=== PATIENT | female | born 1975 | race Caucasian/White ===

== ENCOUNTER 2017-11-02 10:23 | Emergency (ER) | payer BC, SELFPAY ==
[2017-11-02 10:24] VITALS: BP 158/103; PULSE 97; RESP 16; TEMP 36.7; O2SAT 97; BMI 41.5
--- NOTE | 2017-11-02 10:39 | CT_ITS ---
STUDY: CT ABDOMEN AND PELVIS WITHOUT CONTRAST REASON FOR EXAM: Female, 42 years old. LT FLANK PAIN, HX-KS, SURG-KORIN, HTN,DB. RADIATION DOSAGE (If Supplied By Facility): CTDIvol = ( 24.14 ) mGy, DLP = ( 1133.65 ) mGycm TECHNIQUE: Transaxial images were obtained from the dome of the diaphragm to the symphysis pubis without oral contrast, and without intravenous contrast. Sagittal and coronal images were reconstructed. Individualized dose optimization techniques were used for this CT. COMPARISON: October 21 2016 FINDINGS: The lung bases are not visualized. The visualized portions of the heart are within normal limits. There is decreased attenuation of the liver consistent with steatosis. There is non-visualization of the gallbladder, which may be secondary to either contraction or a prior cholecystectomy. Normal spleen. Normal pancreas. Normal bilateral adrenal glands. Normal right kidney. There is mild hydroureteronephrosis on the left. There is 2 mm calcification within the proximal ureter (axial image #92 series 2) Normal visualized stomach. Normal small intestine. Normal colon. The appendix is visualized and appears normal. Normal abdominal aorta. Normal inferior vena cava. Normal retroperitoneum. Normal urinary bladder. There is a 3.8 cm hypodensity of the left adnexal region. Normal abdominal wall. There are diffuse degenerative changes of the visualized lumbar spine. CT/Abdomen/Pelvis without Cont IMPRESSION: 2 mm proximal ureteral calculus with mild hydroureteronephrosis on the left. 3.8 cm left adnexal cyst. Further evaluation with sonography can be obtained. Liver steatosis. Electronically Signed: Marialuisa Carrera MD at 12:19 EDT Tel , Service support ,
--- NOTE | 2017-11-02 10:42 | ED.VISSUMM ---
- ER Visit Summary Date of Service: 11/02/17 Chief Complaint: Flank pain History of Present Illness: The patient is a 42 F with history of kidney stone presents to the emergency department with left-sided flank pain into her left lower quadrants. The patient had intermittent symptoms for the past 10 days, but over the past 2 days they have worsened. She describes cramping pain in her left upper back that has since moved to her left lower quadrant. She is unsure if she has had any hematuria, but has noticed some pink tinged urine. She has never required lithotripsy or stenting for stone. Only past surgical history significant for cholecystectomy. She has had no fevers or chills. She has been nauseated without vomiting. She denies any diarrhea. Physical Examination: Vital signs reviewed General: Well-nourished, well-developed Head: Normocephalic, atraumatic Eyes: Pupils equal and reactive, extraocular muscles intact Neck, supple, no lymphadenopathy Heart: Regular rate and rhythm Respiratory: No distress, clear bilaterally Abdomen: Soft, nontender, nondistended, no peritoneal signs Back: Nontender Extremities: Nontender, no edema, no cords Skin: Normal color no rash Neuro: Alert and oriented, no focal or lateralizing deficits Test Results: [] Emergency Department Course and Treatment: The patient has signs and symptoms of kidney stone. I did obtain a urine and there is some evidence of infection. Culture was added. Patient was treated with Phenergan and morphine. She had complete resolution of pain. CT the abdomen shows a 2 mm left-sided stone with mild hydro-. Labs are otherwise unremarkable. The patient is resting comfortably. At this time, I do feel that she is safe for discharge. I will start her on Cipro given the evidence of infection. She has no fever. She wants to try outpatient therapy and I feel this is reasonable. I did certified alcohol and drug counselor her that if she begins to have a fever, worsening pain, or vomiting she needs to return immediately. She is comfortable with this plan of care and will be discharged. Treatment Plan: [] Disposition: Discharge Impression: 1. Left-sided urolithiasis 2. UTI This note was generated with [employer] software. It may contain incorrect words, spelling, and punctuation that were not noted in review of the chart prior to signing ED Disposition - Plan for ED Patient: Chief Complaint: Flank Pain Instructions: ED Stone Renal W Colic Prescriptions: Hydrocodone Bitart/Apap 5-325 [Purcell 5/325] 1 tab PO Q4H PRN PRN 3 Days #12 tab PRN Reason: Pain Ondansetron [Zofran Odt] 4 mg PO Q8H PRN PRN #10 tab PRN Reason: Nausea Ciprofloxacin [Cipro] 500 mg PO BID #14 tab Referrals: Steven Puentes MD [Primary Care Provider] - Cody Molina MD [STAFF PHYSICIAN] -
[2017-11-02 10:56] LABS: Mucous, Urine 0 SEEN /hpf (<or=2+)
[2017-11-02] MEDS: Morphine 4 MG/ML Syringe IV (10:56)
[2017-11-02] MEDS: proMETHazine 25 MG/ML Syringe 6.25 MG IV (10:56)
[2017-11-02] MEDS: 0.9% Normal Saline 1,000 ML 250 ML IV (10:57)
[2017-11-02] MEDS: Ketorolac 30 MG/ML Syringe IV (10:57)
[2017-11-02 11:03] LABS: Color, Urine Yellow (Yellow); Glucose, Dipstick 50 mg/dl (Normal); Ketone-Dipstick Negative (Negative); Leukocyte Esterase-Dipstick 500 /ul (Negative); Nitrite-Dipstick Negative (Negative); Occult Blood-Urine 250 /ul (Negative); Protein-Dipstick 100 mg/dl (Negative); Specific Gravity, Urine 1.025 (1.002-1.030); Urine Bilirubin Dipstick Negative (Negative); Urine Clarity Sl. Cloudy (Clear); Urine Urobilinogen Normal (Normal)
[2017-11-02 11:03] LABS: Absolute Lymphocyte Count 2.28 X10^3/ul (0.83-4.51); Absolute Neutrophil Count 7.4 X10^3/uL (2.0-7.7); Basophil# 0.02 X10^3/uL; Basophil% 0.2 % (0-1); Eosinophil# 0.18 X10^3/uL; Eosinophils% 1.7 % (0-5); Hemoglobin 13.2 g/dl (12.0-15.0); Lymphocyte # 2.28 X10^3/ul (4.0); Mean Corp Hgb Conc 32.2 g/gl (32-36); Mean Corpuscular Hgb 27.9 pg (27.0-32.0); Mean Corpuscular Volume 86.7 fL (81-99); Monocyte# 0.96 X10^3/uL; Monocyte% 8.8 % (0-10); Neutrophil # 7.38 X10^3/uL (2.7-7.7); Neutrophil % 67.9 % (47-70); Platelet Count 392 K/mm3 (150-450); RBC Distribution Width CV 15.1 % (11.6-14.6); RBC Distribution Width SD 47.9 fl (35.1-43.9); Red Blood Count 4.73 M/mm3 (4.2-5.4); White Blood Count 10.9 K/mm3 (4.4-11.0)
[2017-11-02 11:04] LABS: POSITIVE COUNT NO; POSITIVE DIFFERENTIAL NO; POSITIVE MORPHOLOGY NO
[2017-11-02 11:12] LABS: Anion Gap 7 (5-15); BUN 12 mg/dL (7-18); BUN/Creat Ratio 19.5 RATIO (10-20); Chloride 103 mmol/L (98-107); Creatinine, Serum 0.62 mg/dL (0.55-1.02); EST Glomerular Filtration Rate 114 mL/min (>60); Est Glom Filt Rate - Afr Amer 138 mL/min (>60); Estimated Creatinine Clearance 91.02 ml/min; Glucose 125 mg/dL (74-106); Potassium 3.5 mmol/L (3.5-5.1); Sodium Level 138 mmol/L (136-145)
[2017-11-02 11:14] LABS: Red Blood Cells-Urine 0-5 SEEN /hpf (0-5); White Blood Cells 25-50 SEEN /hpf (0-5)
[2017-11-02 11:15] LABS: Bacteria 2+ /hpf (None Seen); Squamous Epithelial Cells - UA 5-10 SEEN /hpf (5-10)
[2017-11-02 11:20] LABS: Pregnancy, Serum, hCG Quali. NEGATIVE Negative (0-9 Nonpreg)
[2017-11-02] MEDS: Ciprofloxacin 500 MG Tablet PO (12:42)
[2017-11-02 12:45] VITALS: PULSE 90; RESP 16; O2SAT 98
== END 2017-11-02 12:45 | disposition home or self-care (01) ==
PROVIDERS: Emergency Provider Emergency Medicine; Family Provider Family Medicine; PCP Family Medicine
DX: N13.2 Hydronephrosis with renal and ureteral calculous obstruction (principal); N39.0 Urinary tract infection, site not specified; Z87.442 Personal history of urinary calculi; Z90.49 Acquired absence of other specified parts of digestive tract; E66.9 Obesity, unspecified; I10 Essential (primary) hypertension; E78.00 Pure hypercholesterolemia, unspecified; E11.9 Type 2 diabetes mellitus without complications; Z79.84 Long term (current) use of oral hypoglycemic drugs; Z79.899 Other long term (current) drug therapy
CPT/HCPCS: 74176; 80048; 81001; 84703; 85025; 87086; 87088; 96361; 96374; 96375; 99284; J7030

== ENCOUNTER 2018-09-17 05:46 | Day surgery (SDC) | payer BC, SELFPAY ==
[2018-09-17 06:09] VITALS: BP 143/77; PULSE 78; RESP 14; TEMP 37.1; O2SAT 96; BMI 41.4
[2018-09-17 06:20] LABS: Internal QC Validated? YES +Cl - CLEAR BKGD; Pregnancy, Urine Negative Negative
[2018-09-17 06:26] LABS: Bedside Glucose 111 mg/dL (70-110)
[2018-09-17 06:27] LABS: Hematocrit 40.4 % (37-47); Hemoglobin 12.6 g/dl (12.0-15.0); Mean Corp Hgb Conc 31.2 g/gl (32-36); Mean Corpuscular Hgb 27.3 pg (27.0-32.0); Mean Corpuscular Volume 87.4 fL (81-99); Mean Platelet Vol. 9.3 fl (6.2-12.0); Platelet Count 334 K/mm3 (150-450); RBC Distribution Width CV 15.4 % (11.6-14.6); RBC Distribution Width SD 48.5 fl (35.1-43.9); Red Blood Count 4.62 M/mm3 (4.2-5.4); White Blood Count 11.2 K/mm3 (4.4-11.0)
[2018-09-17 06:29] LABS: Scan Indicated on CBC? Y/N NO
[2018-09-17 06:42] LABS: EST Glomerular Filtration Rate 145 mL/min (>60); Est Glom Filt Rate - Afr Amer 176 mL/min (>60); Estimated Creatinine Clearance 106.36 ml/min; Glucose 111 mg/dL (74-106)
--- NOTE | 2018-09-17 07:30 | EMB_PTH ---
PATIENT: JOSSE TANNER LOC: [facility] [place] U#:[id number] AGE/SX: 43/F ROOM: RE09/17/[address]: Dr. Kassidy Tran DO : 1975 BED: DIS: 09/17/2018 SPEC #: [id number] RECD: 09/17/18 14:10 STATUS: URSZULA [place] #: [id number] LEONEL: 09/17/18 07:[address]: Kassidy Tran DEPT: SURGICAL PATHOLOGY RECD BY: Adin Tolliver ENTERED: 09/17/18 14:43 SP TYPE: ENDOM BX/C SABRINA DR: Dr. Steven Puentes MD Tissues: A - Endometrium, NOS B - Endometrium, NOS Procedures: Surgery Specimen Level IV HEADER OPERATION: Hysteroscopy, D & C Symphion, polypectomy PRE-OP DIAGNOSIS: Abnormal uterine bleeding, endometrial polyp TISSUE SUBMITTED: A - Endometrial curettings, B - Endometrial polyps MICROSCOPIC DIAGNOSIS A. Endometrium, curettings: Disordered proliferative endometrium to simple hyperplasia without atypia. Mild chronic endometritis. B. Endometrial polyps, biopsy: Polypoid fragments of endometrium with simple and focal complex hyperplasia without atypia. Mild chronic endometritis. AM:johnnie 09/18/18 MICROSCOPIC DESCRIPTION Slides are reviewed. GROSS DESCRIPTION A - Received in fixative is one container labeled with the patient's name and designated endometrial curettings. The specimen consists of multiple irregular fragments of red-pérez soft tissue that in aggregate measure 6 x 3 x 0.3 cm. The specimen is totally submitted in two cassettes. B - Received in fixative is one container labeled with the patient's name and designated endometrial polyps. The specimen consists of multiple irregular fragments of light pink-pérez soft tissue that in aggregate measure 3 x 1.5 x 0.1 cm. The specimen is totally submitted in one cassette. / AM:johnnie 09/17/18 TC:5 CPT: 76195 x2
--- NOTE | 2018-09-17 08:32 | DCINST_ITS ---
Discharge Diet: No Restrictions Discharge Activity: Return to Normal Activity, May Shower May resume sexual activity in: 1-2 weeks Weight Bearing Status: Full weight bearing Lifting Restrictions: None Call your doctor if you observe: Fever of 101 or Higher, Inability to urinate, Inability to have a bowel movement, Using more than one pad per hour, Shortness of breath, Dizziness, Chest pain, Increased palpitations (irregular heartbeat), Calf discomfort, Uncontrolled pain Cleanse incision/area with: Soap & Water Allergies/Adverse Reactions: Allergies Penicillins Allergy (Verified 09/17/18 06:10) Hives spironolactone [From Aldactone] Allergy (Verified 09/17/18 06:10) Hives Medications to take at Discharge Amlodipine [Norvasc] 5 mg PO DAILY 10/28/15 Glimepiride [Amaryl] 1 mg PO DAILY 10/28/15 Hydrochlorothiazide 12.5 mg PO DAILY 10/28/15 Levothyroxine [Synthroid] 50 mcg PO DAILY 10/28/15 Liraglutide [Victoza 2-Gonzalo] 1.8 mg SQ DAILY 10/28/15 Lisinopril [Zestril] 20 mg PO BID 10/28/15 Lovastatin [Mevacor] 20 mg PO DAILY 10/28/15 Metformin HCl [Glucophage] 1,000 mg PO BIDCM 10/28/15 Sertraline HCl [Zoloft] 100 mg PO DAILY 10/28/15 Primary Care Physician: Steven Puentes MD [Primary Care Provider] - Test Results: Test results from this visit will be discussed in further detail at your follow- up appointment, if applicable. Please Follow Up With: Kassidy Tran DO When: 1-2 weeks
--- NOTE | 2018-09-17 08:34 | PCM.OPRPT ---
Problem List (1) Endometrial polyp Status: Acute (2) Abnormal uterine bleeding (AUB) Status: Acute Report of Operation Date of Procedure: 09/17/18 Pre-Operative Diagnosis: AUB, endometrial polyp on biopsy Post-Operative Diagnosis: As above Surgery/Procedure Performed:: Hysteroscopy, polypectomy with Symphion, D&C Description of Surgical Findings:: Multiple endometrial polyps noted within cavity. Otherwise endometrium thin appearing. Bilateral tubal ostia unable to be visualized due to the amount of poylps within the cavity. No descent of uterus and cervix Type of Anesthesia:: MAC Specimen's removed: Endometrial polyps and endometrial curettings Estimated Blood Loss (mL): < 50 cc Description of Procedure: Patient was prepped and draped in the usual sterile fashion in dorsal lithotomy position using yellow fin stirrups. MAC anesthesia was found to be adequate. A long weighted speculum was placed and the cervix was visualized. There was no descent of the cervix. A single tooth tenaculum was placed on the anterior lip and the cervix was serially dilated to accommodate the Symphion hysteroscope. The Symphion hysteroscope was then introduced into the cavity, and the cavity was distended with fluid. The cavity was noted to be filled with multiple polyps. The Symphion device was then used to remove the polyps. Pictures were taken. The hysteroscope was then removed. A sharp D&C was performed for scant tissue. The polyps and endometrial tissue were sent to pathology for reviewed. All instruments were removed from the vagina. Bleeding was hemostatic. The patient tolerated the procedure well and was taken to the recovery room in good condition. Instrument counts were correct. - Complications None - Admit VTE Documentation VTE Present on Admission: No VTE Mechan Device Prophylaxis: SCD's VTE Pharm Prophylaxis ordered?: No
[2018-09-17 08:35] VITALS: BP 137/87; BP 143/77; PULSE 72; RESP 16; TEMP 36.8; O2SAT 100
[2018-09-17 08:40] VITALS: BP 140/75; BP 143/77; PULSE 70; RESP 16; O2SAT 98
[2018-09-17 08:45] VITALS: BP 137/88; BP 143/77; PULSE 68; RESP 16; O2SAT 100
[2018-09-17 08:50] VITALS: BP 140/80; BP 143/77; PULSE 72; RESP 16; TEMP 36.3; O2SAT 100
[2018-09-17 09:26] VITALS: BP 143/77
== END 2018-09-17 10:12 | disposition home or self-care (01) ==
LOC: SDC 05:47 → AC 05:49
PROVIDERS: Family Provider Family Medicine; PCP Family Medicine; Referring Provider Obstetrics & Gynecology; Visit Provider Obstetrics & Gynecology
PROC: 0UB98ZZ Excision of Uterus, Via Natural or Artificial Opening Endoscopic (ICD-10-PCS; CPT 58558; principal; 2018-09-17 07:15)
DX: N85.01 Benign endometrial hyperplasia (principal); N71.1 Chronic inflammatory disease of uterus; N93.9 Abnormal uterine and vaginal bleeding, unspecified; E78.00 Pure hypercholesterolemia, unspecified; E11.9 Type 2 diabetes mellitus without complications; F32.9 Major depressive disorder, single episode, unspecified; F41.9 Anxiety disorder, unspecified; I10 Essential (primary) hypertension; E03.9 Hypothyroidism, unspecified; G47.33 Obstructive sleep apnea (adult) (pediatric); Z79.84 Long term (current) use of oral hypoglycemic drugs; Z79.899 Other long term (current) drug therapy
CPT/HCPCS: 00952; 58558; 36415; 81025; 82565; 82947; 82962; 85027; 86850; 86870; 86900; 86902; 86905; 88305; J7120; J2405

== ENCOUNTER 2020-12-28 20:53 | Emergency (ER) | payer SELFPAY ==
[2020-12-28 20:53] VITALS: BP 116/73; PULSE 90; RESP 16; TEMP 36.7; O2SAT 97; BMI 38.3
--- NOTE | 2020-12-28 21:11 | EX.ED.DYSGE1 ---
HPI History of Present Illness Chief Complaint: Complaint Informant: patient Onset/Context/Timing Onset: Days (3) Context: Gradual Onset Timing: Continuous Quality: Aching Location: Low back and lower abdomen Worsened by: Nothing Relieved by: Nothing Narrative Narrative: Patient presents with back pain that has been getting worse over the past 3 days. Patient states she was seen in urgent care 3 days ago and diagnosed with a urinary tract infection. Patient had a urine culture performed at that time which grew out Klebsiella. Patient has been on Cipro for the past 3 days with minimal improvement. Patient describes her pain as aching. Patient states the pain is over the lower lumbar area and radiates around to her abdomen. Patient admits to subjective chills. Patient admits to nausea but denies any vomiting. Patient denies any fevers. [facility] Medical History (Updated 12/28/20 @ 22:[address] Pierre Fuller, ) Depression Diabetes Hypertension Hypothyroidism Home Medications Liraglutide [Victoza 2-Gonzalo] 1.8 mg SQ DAILY 10/28/15 [History Last Taken Unknown] amlodipine 10 mg PO DAILY 10/28/15 [History Last Taken 09/17/18 05:00 5 MG] glimepiride 4 mg PO DAILY 10/28/15 [History Last Taken Unknown] hydrochlorothiazide 12.5 mg PO DAILY 10/28/15 [History Last Taken Unknown] levothyroxine 75 mcg PO DAILY 10/28/15 [History Last Taken 09/17/18 05:00 50 MCG] lisinopril 20 mg PO BID 10/28/15 [History Last Taken 01/02/16 07:30] lovastatin 20 mg PO DAILY 10/28/15 [History Last Taken 09/17/18 05:00 20 MG] metformin 1,000 mg PO BIDCM 10/28/15 [History Last Taken Unknown] sertraline 100 mg PO DAILY 10/28/15 [History Last Taken Unknown] ciprofloxacin HCl 500 mg PO BID #14 tablet 12/28/20 [Rx Last Taken Unknown] medroxyprogesterone [Provera] 5 mg PO DAILY 12/28/20 [History Last Taken Unknown] Allergy/AdvReac Type Severity Reaction Status Date / Time Penicillins Allergy Hives Verified 09/17/18 06:10 spironolactone Allergy Hives Verified 09/17/18 06:10 [From Aldactone] Surgical History (Updated 12/28/20 @ 21:[address] Pierre Fuller DO) History of cholecystectomy Status post trigger finger release Social History Smoking Status: Never smoker ROS ROS ED Constitutional Constitutional ED: Reports chills and subjective; Denies fever(s) Eyes Eyes: Denies blurry vision or change in vision ENT ENT ED: Denies rhinorrhea or sore throat Cardiovascular Cardiovascular: Denies chest pain or palpitations Respiratory/Chest Respiratory/Chest: Reports cough; Denies dyspnea Gastrointestinal Gastrointestinal: Reports nausea; Denies vomiting Genitourinary Genitourinary ED: Denies dysuria or hematuria Musculoskeletal Musculoskeletal: Reports back pain; Denies neck pain Integumentary Denies abscess or rash Neurologic Neurologic: Denies headache(s) or weakness Allergic/Immunologic Allergic/Immunologic ED: Denies mouth swelling or urticaria EXAM Physical Exam Const Vital Signs: 12/28/20 20:53 Temperature 98.1 F Temperature Source Temporal Pulse Rate 90 Respiratory Rate 16 Blood Pressure 116/73 Blood Pressure Mean 87 Pulse Ox 97 Oxygen Delivery Method Room Air Positive well nourished, well developed and obese General Appearance ED: well developed Nutritional Appearance: obese HEENT Reports moist mucous membranes Neck supple and no JVD Resp normal respiratory effort and clear to auscultation bilaterally Cardio regular rate and regular rhythm GI normal to inspection, nondistended, normoactive bowel sounds Palpation: soft and tender LLQ, RLQ and suprapubic; Negative for guarding or rebound tenderness present Back/Spine no CVA tenderness General Back: other There is some mild lower lumbar paraspinal muscle tenderness. Neuro oriented x3, CN's II-XII intact bilaterally and no sensory deficits noted Sensorium / Orientation: alert Motor Exam: strength 5/5 throughout Psych mental status grossly normal MDM MDM MDM Narrative Medical decision making narrative: Urinalysis shows leukocyte esterase of 100 with 10-25 white blood cells. There is rare bacteria. CBC is within normal limits. Comprehensive metabolic profile shows a mild hypokalemia 3.1. Patient was given a dose of oral potassium here. Urine culture was sent. CT scan of the abdomen and pelvis was obtained. There is mild prominence of the left renal collecting system and pelvis without ureteral calculus. Findings may represent recent passage of a urinary calculus or a sending UTI. This was interpreted by the radiologist and reviewed by myself. Patient was given a dose of Rocephin here. Cipro should cover Klebsiella pneumonia. Patient was given a prescription for a longer course of Cipro. Patient was instructed to follow-up with her primary care physician in 3 to 5 days for sensitivity results from her urine culture. Patient understood and was agreeable with the plan. All questions were answered. Lab Data Attestation: I reviewed the patient's lab results. Labs: Laboratory Results - last 24 hr 12/28/20 12/28/20 12/28/20 21:01 21:20 21:20 WBC 10.9 RBC 5.01 Hgb 13.9 Hct 42.7 MCV 85.2 MCH 27.7 MCHC 32.6 RDW Std Deviation 43.1 RDW Coeff of Daniella 13.8 Plt Count 362 MPV 9.2 Immature Gran % (Auto) 0.600 Neut % (Auto) 71.7 H Lymph % (Auto) 16.0 L Wise % (Auto) 10.1 H Eos % (Auto) 1.1 Baso % (Auto) 0.5 Absolute Neuts (auto) 7.8 H Absolute Lymphs (auto) 1.75 Nucleated RBC % 0 Sodium 135 L Potassium 3.1 L Chloride 99 Carbon Dioxide 28.0 Anion Gap 8 BUN 14 Creatinine 0.70 Estim Creat Clear Calc 78.20 Est GFR (MDRD) Af Amer 117 Est GFR (MDRD) Non-Af 97 BUN/Creatinine Ratio 20.0 Glucose 78 Calcium 9.1 Total Bilirubin 0.30 AST 37 ALT 55 Alkaline Phosphatase 105 Total Protein 8.0 Albumin 3.4 Globulin 4.6 H Albumin/Globulin Ratio 0.7 L Urine Color Yellow Urine Clarity Sl. Cloudy Urine pH 5.0 Ur Specific [place] 1.025 Urine Protein 30 H Urine Glucose (UA) Normal Urine Ketones 5 H Urine Occult Blood 10 H Urine Nitrite Negative Urine Bilirubin Negative Urine Urobilinogen Normal Ur Leukocyte Esterase 100 H Urine RBC 0-5 SEEN Urine WBC 10-25 SEEN Ur Squamous Epith Cells 0-5 SEEN Urine Bacteria RARE Urine Mucus 0 SEEN Radiography Diagnostic Testing: Radiology Impression Abdomen/Pelvis CT 12/28/20 21:49 IMPRESSION: Mild prominence of the left renal collecting system and pelvis without obstructing ureteral calculus. Findings may represent recent passage of urinary calculus no longer present or ascending UTI. Individualized dose optimization techniques were used for this CT. at 2220 Reported and signed by: Bonifacio Billy MD Electronically Signed: Bonifacio Billy MD at 22:19 EDT Tel , Service support , Discharge Plan Triage Chief Complaint: Complaint ED Provider: Pierre Fuller Dx/Rx/DC Orders Clinical Impression: Urinary tract infection Instructions: ED Bladder Infection, Female (Adult) Prescriptions: New ciprofloxacin HCl [ciprofloxacin HCl] 500 MG tablet 500 mg PO BID Qty: 14 RF: 0 Discontinued ciprofloxacin HCl 500 mg Tablet 500 mg PO BID RF: 0 No Action lisinopril 20 MG tablet 20 mg PO BID RF: 0 amlodipine 5 MG tablet 10 mg PO DAILY RF: 0 glimepiride 1 MG tablet 4 mg PO DAILY RF: 0 metformin 1,000 MG tablet 1,000 mg PO BIDCM RF: 0 hydrochlorothiazide 12.5 MG capsule 12.5 mg PO DAILY RF: 0 sertraline 100 MG tablet 100 mg PO DAILY RF: 0 levothyroxine 50 MCG tablet 75 mcg PO DAILY RF: 0 lovastatin 20 MG tablet 20 mg PO DAILY RF: 0 Liraglutide [Victoza 2-Gonzalo] 0.6 MG/0.1 ML Ml 1.8 mg SQ DAILY RF: 0 medroxyprogesterone [Provera] 5 mg Tablet 5 mg PO DAILY RF: 0 Primary Care Provider: Steven Puentes Referrals: Steven Puentes MD [Primary Care Provider] - 3-5 Days Disposition Disposition: Home, self care
[2020-12-28 21:15] LABS: Mucous, Urine 0 SEEN /hpf (<or=2+)
[2020-12-28 21:16] LABS: Color, Urine Yellow (Yellow); Glucose, Dipstick Normal (Normal); Ketone-Dipstick 5 mg/dl (Negative); Leukocyte Esterase-Dipstick 100 /ul (Negative); Nitrite-Dipstick Negative (Negative); Occult Blood-Urine 10 /ul (Negative); Protein-Dipstick 30 mg/dl (Negative); Specific Gravity, Urine 1.025 (1.002-1.030); Urine Bilirubin Dipstick Negative (Negative); Urine Clarity Sl. Cloudy (Clear); Urine Urobilinogen Normal (Normal)
[2020-12-28 21:22] LABS: Bacteria RARE /hpf (None Seen); Red Blood Cells-Urine 0-5 SEEN /hpf (0-5); Squamous Epithelial Cells - UA 0-5 SEEN /hpf (5-10); White Blood Cells 10-25 SEEN /hpf (0-5)
[2020-12-28] MEDS: 0.9% Normal Saline 1,000 ML 1000 ML IV (21:27)
[2020-12-28 21:28] LABS: Absolute Lymphocyte Count 1.75 X10^3/uL (0.83-4.51); Absolute Neutrophil Count 7.8 X10^3/uL (2.0-7.7); Basophil# 0.05 X10^3/uL; Basophil% 0.5 % (0-1); Eosinophil# 0.12 X10^3/uL; Eosinophils% 1.1 % (0-5); Hematocrit 42.7 % (37-47); Hemoglobin 13.9 g/dL (12.0-15.0); Lymphocyte # 1.75 X10^3/ul (0.83-4.51); Mean Corp Hgb Conc 32.6 g/dL (32-36); Mean Corpuscular Hgb 27.7 pg (27.0-32.0); Mean Corpuscular Volume 85.2 fL (81-99); Mean Platelet Vol. 9.2 fl (6.2-12.0); Monocyte% 10.1 % (0-10); NRBC Flagged by Analyzer 0 % (0-5); Neutrophil # 7.84 X10^3/uL (2.7-7.7); Neutrophil % 71.7 % (47-70); Platelet Count 362 K/mm3 (150-450); RBC Distribution Width CV 13.8 % (11.6-14.6); RBC Distribution Width SD 43.1 fl (35.1-43.9); Red Blood Count 5.01 M/mm3 (4.2-5.4); White Blood Count 10.9 K/mm3 (4.4-11.0)
[2020-12-28 21:45] LABS: ALB/GLOB Ratio 0.7 RATIO (0.9-2.4); AST(SGOT) 37 U/L (15-37); Alanine Aminotransfer ALT/SGPT 55 U/L (13-56); Albumin, Serum 3.4 g/dL (3.2-5.0); Alkaline Phosphatase 105 U/L (45-117); Anion Gap 8 (5-15); BUN 14 mg/dL (7-18); Calcium,Total 9.1 mg/dL (8.5-10.1); Chloride 99 mmol/L (98-107); EST Glomerular Filtration Rate 97 mL/min (>60); Est Glom Filt Rate - Afr Amer 117 mL/min (>60); Globulin 4.6 g/dL (2.2-4.2); Glucose 78 mg/dL (74-106); Potassium 3.1 mmol/L (3.5-5.1); Sodium Level 135 mmol/L (136-145)
--- NOTE | 2020-12-28 21:49 | CT_ITS ---
HISTORY: Flank pain EXAMINATION: CT Abdomen And Pelvis W/O Contrast Injection TECHNIQUE: Multiple axial images were obtained of the abdomen and pelvis without oral or IV contrast. A radiation dose optimization technique was used for this scan. IV Contrast dosage and agent: None. Oral contrast: None. COMPARISON: 11/02/17 FINDINGS: LOWER CHEST: Lung bases are clear. No cardiomegaly or pericardial effusion. LIVER: Homogeneous low attenuation consistent with steatosis similar to prior study.. No focal mass. GALLBLADDER AND BILIARY TREE: No calcified gallstones. No gallbladder distension or wall edema. No intra- or extrahepatic biliary ductal dilation. PANCREAS: No focal cystic or solid mass. SPLEEN: Normal size without focal cystic or solid mass. ADRENAL GLANDS: No nodules. KIDNEYS AND URETERS: Mild prominence of the left renal collecting system and pelvis with left perinephric stranding. No obstructing calculus in the lumen of the left ureter. PERITONEUM: No ascites or free air. BOWEL: Normal appendix. No stomach or bowel distension. No focal inflammatory bowel wall changes. LYMPH NODES: No enlarged mesenteric or retroperitoneal lymph nodes. VESSELS: Aorta is non-dilated. URINARY BLADDER: Minimally distended. REPRODUCTIVE ORGANS: No pelvic masses. 2.4 cm right ovarian follicle. ABDOMINAL WALL: No discrete abdominal or pelvic wall hernia. BONES: No acute or aggressive abnormality. CT/Abdomen/Pelvis without Cont IMPRESSION: Mild prominence of the left renal collecting system and pelvis without obstructing ureteral calculus. Findings may represent recent passage of urinary calculus no longer present or ascending UTI. Individualized dose optimization techniques were used for this CT. at 2220 Reported and signed by: Bonifacio Billy MD Electronically Signed: Bonifacio Billy MD at 22:19 EDT Tel , Service support ,
[2020-12-28] MEDS: Potassium Chloride Oral Tablet 20 MEQ 40 MEQ PO (22:04)
[2020-12-28] MEDS: Ceftriaxone 1 GM/50 ML BAG IV (22:12)
== END 2020-12-28 23:01 | disposition home or self-care (01) ==
PROVIDERS: Emergency Provider Emergency Medicine; PCP Family Medicine
DX: N39.0 Urinary tract infection, site not specified (principal); E66.9 Obesity, unspecified; F32.9 Major depressive disorder, single episode, unspecified; E11.9 Type 2 diabetes mellitus without complications; E03.9 Hypothyroidism, unspecified; I10 Essential (primary) hypertension; Z79.84 Long term (current) use of oral hypoglycemic drugs; Z79.899 Other long term (current) drug therapy
CPT/HCPCS: 74176; 80053; 81001; 85025; 87086; 87088; 96365; 99283; J7030; A4216

== ENCOUNTER 2022-09-27 03:22 | Emergency (ER) | payer SELFPAY ==
[2022-09-27 03:24] VITALS: BP 165/81; PULSE 95; RESP 16; TEMP 36.9; O2SAT 96; BMI 40.7
[2022-09-27 03:27] VITALS: BP 165/81; PULSE 95; RESP 16; TEMP 36.9; O2SAT 96
--- NOTE | 2022-09-27 03:34 | EX.ED.DYSGE1 ---
HPI History of Present Illness Chief Complaint: Complaint Detail of Chief Complaint: Back pain Informant: patient Narrative Narrative: Patient presents with low back pain that she has had for about a week. Patient initially attributed to work. Patient states that the pain started wrapping around the left front of the abdomen. She denies dysuria or urgency or frequency. She denies hematuria. Patient's had similar discomfort when she has had UTIs. Patient has history of kidney stones but this feels different. No history of diverticulitis. Patient currently rates her pain a 6 out of 10. She has had no nausea or vomiting. She denies fevers. Prior similar symptoms: Yes [facility] Medical History (Updated 09/27/22 @ 05:[address] Anders Santos, DO) Depression Diabetes Hypertension Hypothyroidism Home Medications Liraglutide [Victoza 2-Gonzaol] 1.8 mg SQ DAILY 10/28/15 [History Last Taken Unknown] amlodipine 5 mg tablet 10 mg PO DAILY 10/28/15 [History Last Taken 09/17/18 05:00 5 MG] glimepiride 1 mg tablet 4 mg PO DAILY 10/28/15 [History Last Taken Unknown] hydrochlorothiazide 12.5 mg capsule 12.5 mg PO DAILY 10/28/15 [History Last Taken Unknown] levothyroxine 50 mcg tablet 75 mcg PO DAILY 10/28/15 [History Last Taken 09/17/18 05:00 50 MCG] lisinopril 20 mg tablet 20 mg PO BID 10/28/15 [History Last Taken 01/02/16 07:30] lovastatin 20 mg tablet 20 mg PO DAILY 10/28/15 [History Last Taken 09/17/18 05:00 20 MG] metformin 1,000 mg tablet 1,000 mg PO BIDCM 10/28/15 [History Last Taken Unknown] sertraline 100 mg tablet 100 mg PO DAILY 10/28/15 [History Last Taken Unknown] ciprofloxacin HCl 500 mg tablet 500 mg PO BID #14 TABLETS 12/28/20 [Rx Last Taken Unknown] medroxyprogesterone 5 mg tablet (Provera) 5 mg PO DAILY 12/28/20 [History Last Taken Unknown] hydrocodone-acetaminophen 5-325mg 5mg-325mg 1 tab PO Q4H PRN PRN Pain 2 days #10 TABLETS 09/27/22 [Rx Last Taken Unknown] naproxen 500 mg tablet 500 mg PO BID #14 tabs 09/27/22 [Rx Last Taken Unknown] ondansetron 4 mg disintegrating tablet 4 mg PO Q8H PRN PRN Nausea #10 tabs 09/27/22 [Rx Last Taken Unknown] sulfamethoxazole 800 mg-trimethoprim 160 mg tablet 1 tab PO BID #6 TABLETS 09/27/22 [Rx Last Taken Unknown] Allergy/AdvReac Type Severity Reaction Status Date / Time Penicillins Allergy Hives Verified 09/17/18 06:10 spironolactone Allergy Hives Verified 09/17/18 06:10 [From Aldactone] Surgical History (Updated 12/28/20 @ 21:[address] Pierre Fuller DO) History of cholecystectomy Status post trigger finger release Social History Smoking Status: Never smoker ROS ROS ED Review of Systems ROS Unobtainable: other Constitutional Constitutional ED: Reports lethargy; Denies chills, fever(s), sweats or weight loss Eyes Eyes: Denies blurry vision, change in vision or diplopia ENT ENT ED: Denies rhinorrhea or sore throat Cardiovascular Cardiovascular: Denies chest pain, orthopnea or racing heartbeat Respiratory/Chest Respiratory/Chest: Denies cough, dyspnea, dyspnea on exertion, orthopnea or sputum Gastrointestinal Gastrointestinal: Denies abdominal pain, diarrhea, nausea or vomiting Genitourinary Genitourinary ED: Denies dysuria, hematuria or urinary frequency Musculoskeletal Musculoskeletal: Reports back pain; Denies arthralgias, myalgias or neck pain Integumentary Denies abscess, Abrasions or rash Neurologic Neurologic: Denies headache(s) or weakness Psychiatric Psychiatric: Denies anxiety, depression or suicidal thoughts Endocrine Endocrinology: Denies polydipsia, polyphagia or polyuria Hematologic/Lymphatic Hematologic/Lymphatic: Denies easy bleeding, easy bruising or lymphadenopathy Allergic/Immunologic Allergic/Immunologic ED: Denies mouth swelling, tongue swelling or urticaria EXAM Physical Exam Const Vital Signs: 09/27/22 03:24 09/27/22 03:27 09/27/22 04:33 Temperature 98.4 F 98.4 F 98.4 F Temperature Source Oral Oral Temporal Pulse Rate 95 95 80 Respiratory Rate 16 16 15 Blood Pressure 165/81 H 165/81 H 140/78 H Blood Pressure Mean 109 109 98 Pulse Ox 96 96 99 Oxygen Delivery Method Room Air Room Air Room Air Positive well nourished and well developed General Appearance ED: well developed and NAD HEENT Reports TM's clear and moist mucous membranes normocephalic and atraumatic; Negative for trauma or tenderness Tympanic Membrane ED: Yes TM's clear Eyes PERRL and EOMs intact bilaterally General Eye ED: Negative for pale conjunctiva or scleral icterus Neck no lymphadenopathy, supple and no JVD General: Negative for tenderness Chest Wall inspection of chest normal and palpation of chest normal Chest: Negative for tenderness Resp normal respiratory effort and clear to auscultation bilaterally Effort and Inspection: Negative for respiratory distress or pain with movement Auscultation: Negative for rhonchi, wheezes or diminished lung sounds Cardio regular rate, regular rhythm, S1 normal heart sound, S2 normal heart sound and no murmurs Peripheral Pulses: pulses 2+ throughout GI normal to inspection, nondistended, normoactive bowel sounds, soft to palpation, non-distended and no masses GI Narrative: Patient with normal active bowel sounds. She has mild tenderness palpation of left lower quadrant. There is no rebound, rigidity, or peritoneal signs. No guarding Back/Spine no CVA tenderness and no thoracic nor lumbar tenderness Extremity normal to inspection General Extremety ED: Negative for edema General Extremity: Negative for edema Neuro oriented x3, CN's II-XII intact bilaterally, no sensory deficits noted and gait normal Sensorium / Orientation: awake, alert, oriented to person, oriented to place and oriented to time Motor Exam: strength 5/5 throughout and strength abnormal Psych mental status grossly normal Skin no rashes or lesions noted and no wounds MDM MDM MDM Narrative Medical decision making narrative: Patient presents with left back pain. Initially we obtained a urinalysis that showed greater than 100 RBCs and only 10-25 WBCs and +2 bacteria. She can continue to have increasing pain and therefore an IV line established and was medicated with Toradol as well as morphine and Zofran and she had good pain relief with that. CBC with differential and chemistries were unremarkable. I did obtain a CT scan of the abdomen pelvis as I had concern for kidney stone given the hematuria and her history of kidney stones. CT did show a 2 mm ureteral stone in the proximal left ureter with obstructive pattern. This time patient will be referred to the urology for follow-up. She will be given a prescription for Bactrim for 3 days as well as a prescription for naproxen and [place]. Patient advised to return if worsening pain, fever, vomiting, or condition should worsen anyway. Lab Data Labs: Laboratory Results - last 24 hr 09/27/22 09/27/22 09/27/22 03:29 03:29 03:40 WBC 10.9 RBC 4.98 Hgb 14.1 Hct 44.5 MCV 89.4 MCH 28.3 MCHC 31.7 L RDW Std Deviation 44.0 H RDW Coeff of Daniella 13.5 Plt Count 375 MPV 9.8 Immature Gran % (Auto) 0.600 Neut % (Auto) 63.8 Lymph % (Auto) 25.6 [place] % (Auto) 7.8 Eos % (Auto) 1.7 Baso % (Auto) 0.5 Absolute Neuts (auto) 6.9 Absolute Lymphs (auto) 2.78 Nucleated RBC % 0 Sodium 140 Potassium 3.3 L Chloride 103 Carbon Dioxide 28.0 Anion Gap 9 BUN 16 Creatinine 0.56 Estim Creat Clear Calc 91.12 Est GFR (MDRD) Af Amer 149 Est GFR (MDRD) Non-Af 123 BUN/Creatinine Ratio 28.3 H Glucose 137 H Calcium 9.5 Urine Color Yellow Urine Clarity Cloudy Urine pH 5.0 Ur Specific [place] 1.025 Urine Protein 100 H Urine Glucose (UA) Normal Urine Ketones 5 H Urine Occult Blood 250 H Urine Nitrite Negative Urine Bilirubin Negative Urine Urobilinogen Normal Ur Leukocyte Esterase 100 H Urine RBC > 100 SEEN Urine WBC 10-25 SEEN Ur Squamous Epith Cells 5-10 SEEN Urine Bacteria 2+ Urine Mucus 1+ Radiography Diagnostic Testing: Clinical Impression(s) from Imaging Studies Abdomen/Pelvis CT 09/27/22 04:15 IMPRESSION: 1. Tiny, 2 mm stone in the proximal left ureter causing mild obstructive changes. 2. Hepatomegaly with fatty infiltration. Electronically Signed: Carlo England MD at 5:06 EDT , Discharge Plan Triage Chief Complaint: Complaint ED Provider: Anders Santos Dx/Rx/DC Orders Clinical Impression: Urolithiasis, UTI (urinary tract infection) Instructions: ED Cystitis Female Adult, ED Kidney Stone w/ Colic Prescriptions: New hydrocodone-acetaminophen [hydrocodone-acetaminophen] 5-325 mg tablet 1 tab PO Q4H PRN PRN (Reason: Pain) 2 Days Qty: 10 0RF sulfamethoxazole-trimethoprim [sulfamethoxazole-trimethoprim] 800-160 mg tablet 1 tab PO BID Qty: 6 0RF ondansetron [ondansetron] 4 mg tablet,disintegrating 4 mg PO Q8H PRN PRN (Reason: Nausea) Qty: 10 0RF naproxen 500 mg tablet 500 mg PO BID Qty: 14 0RF No Action lisinopril 20 MG tablet 20 mg PO BID amlodipine 5 MG tablet 10 mg PO DAILY glimepiride 1 MG tablet 4 mg PO DAILY metformin 1,000 MG tablet 1,000 mg PO BIDCM hydrochlorothiazide 12.5 MG capsule 12.5 mg PO DAILY sertraline 100 MG tablet 100 mg PO DAILY levothyroxine 50 MCG tablet 75 mcg PO DAILY lovastatin 20 MG tablet 20 mg PO DAILY Liraglutide [Victoza 2-Gonzalo] 0.6 MG/0.1 ML Ml 1.8 mg SQ DAILY medroxyprogesterone [Provera] 5 mg Tablet 5 mg PO DAILY ciprofloxacin HCl [ciprofloxacin HCl] 500 MG tablet 500 mg PO BID Qty: 14 0RF Primary Care Provider: Steven Puentes Referrals: Steven Puentes MD [Primary Care Provider] - Cody Molina MD [Med Staff - Active Staff] - 3-5 Days Disposition Disposition: Home, Self Care
[2022-09-27 03:52] LABS: Color, Urine Yellow (Yellow); Glucose, Dipstick Normal (Normal); Ketone-Dipstick 5 mg/dl (Negative); Leukocyte Esterase-Dipstick 100 /ul (Negative); Nitrite-Dipstick Negative (Negative); Occult Blood-Urine 250 /ul (Negative); Protein-Dipstick 100 mg/dl (Negative); Specific Gravity, Urine 1.025 (1.002-1.030); Urine Bilirubin Dipstick Negative (Negative); Urine Clarity Cloudy (Clear); Urine Urobilinogen Normal (Normal)
[2022-09-27 03:59] LABS: Bacteria 2+ /hpf (None Seen); Mucous, Urine 1+ /hpf (<or=2+); Red Blood Cells-Urine > 100 SEEN /hpf (0-5); Squamous Epithelial Cells - UA 5-10 SEEN /hpf (5-10); White Blood Cells 10-25 SEEN /hpf (0-5)
--- NOTE | 2022-09-27 04:15 | CT_ITS ---
EXAM: CT ABDOMEN AND PELVIS WITHOUT INTRAVENOUS CONTRAST CLINICAL INDICATION: Pain TECHNIQUE: Helically acquired images were obtained of the abdomen and pelvis without intravenous contrast. This CT exam was performed using one or more of the following dose reduction techniques: automated exposure control, adjustment of the mA and/or kV according to patient size, and/or use of iterative reconstruction technique. This report was created using [employer] report generation technology. COMPARISON: 12/28/2020 FINDINGS: LOWER THORAX: Unremarkable. Lung bases are clear. No cardiomegaly. No significant pericardial effusion. ABDOMEN: LIVER: Hepatomegaly with fatty infiltration. GALLBLADDER AND BILE DUCTS: The gallbladder is not identified and may be surgically absent. No intra- or extrahepatic biliary ductal dilation. PANCREAS: Unremarkable. No focal cystic mass. SPLEEN: Unremarkable. Normal size without focal cystic or solid mass. ADRENALS: Unremarkable. No nodules. KIDNEYS AND URETERS: Mild left hydronephrosis and proximal hydroureter, with a tiny, 2 mm stone in the proximal left ureter. Best appreciated on coronal image 85. Normal renal size and position. STOMACH AND BOWEL: Unremarkable. No stomach or bowel distention. No focal inflammatory change. PELVIS: APPENDIX: The appendix is normal. BLADDER: Unremarkable. REPRODUCTIVE: Unremarkable as visualized. No mass. ABDOMEN and PELVIS: INTRAPERITONEAL SPACE: Unremarkable. No ascites or other fluid collection. No free air. BONES/JOINTS: Degenerative changes of the spine. No suspicious lytic or blastic abnormality. L5 pars defects with grade 1 anterolisthesis of L5 on S1. SOFT TISSUES: Unremarkable. No discrete abdominal or pelvic wall hernia. VASCULATURE: Unremarkable. Abdominal aorta is non-dilated. LYMPH NODES: Unremarkable. No enlarged lymph nodes. CT/Abdomen/Pelvis without Cont IMPRESSION: 1. Tiny, 2 mm stone in the proximal left ureter causing mild obstructive changes. 2. Hepatomegaly with fatty infiltration. Electronically Signed: Carlo England MD at 5:06 EDT ,
[2022-09-27] MEDS: Ketorolac 15 MG/ML Vial IV (04:21)
[2022-09-27] MEDS: Ondansetron 4 MG/2 ML Vial IV (04:21)
[2022-09-27] MEDS: Morphine 4 MG/ML Syringe IV (04:21)
[2022-09-27 04:33] VITALS: BP 140/78; PULSE 80; RESP 15; TEMP 36.9; O2SAT 99
[2022-09-27 04:42] LABS: Absolute Lymphocyte Count 2.78 X10^3/uL (0.83-4.51); Absolute Neutrophil Count 6.9 X10^3/uL (2.0-7.7); Basophil# 0.05 X10^3/uL; Basophil% 0.5 % (0-1); Eosinophil# 0.18 X10^3/uL; Eosinophils% 1.7 % (0-5); Hematocrit 44.5 % (37-47); Hemoglobin 14.1 g/dL (12.0-15.0); Lymphocyte # 2.78 X10^3/ul (0.83-4.51); Lymphocyte % 25.6 % (19-41); Mean Corp Hgb Conc 31.7 g/dL (32-36); Mean Corpuscular Hgb 28.3 pg (27.0-32.0); Mean Corpuscular Volume 89.4 fL (81-99); Mean Platelet Vol. 9.8 fl (6.2-12.0); Monocyte# 0.85 X10^3/uL; Monocyte% 7.8 % (0-10); NRBC Flagged by Analyzer 0 % (0-5); Neutrophil # 6.93 X10^3/uL (2.7-7.7); Neutrophil % 63.8 % (47-70); Platelet Count 375 K/mm3 (150-450); RBC Distribution Width CV 13.5 % (11.6-14.6); Red Blood Count 4.98 M/mm3 (4.2-5.4); White Blood Count 10.9 K/mm3 (4.4-11.0)
[2022-09-27 04:49] LABS: Anion Gap 9 (5-15); BUN 16 mg/dL (7-18); BUN/Creat Ratio 28.3 RATIO (10-20); Calcium,Total 9.5 mg/dL (8.5-10.1); Chloride 103 mmol/L (98-107); Creatinine, Serum 0.56 mg/dL (0.55-1.02); EST Glomerular Filtration Rate 123 mL/min (>60); Est Glom Filt Rate - Afr Amer 149 mL/min (>60); Estimated Creatinine Clearance 91.12 ml/min; Glucose 137 mg/dL (74-106); Potassium 3.3 mmol/L (3.5-5.1); Sodium Level 140 mmol/L (136-145)
[2022-09-27] MEDS: Smz/Tmp Ds Tablet 1 TABLET PO (05:53)
[2022-09-27 06:01] VITALS: BP 138/74; PULSE 88; RESP 15; TEMP 36.3; O2SAT 99
[2022-09-27] MEDS: HYDROcodone Bitartrate/Apap 5/325 Tablet PO (06:03)
== END 2022-09-27 06:06 | disposition home or self-care (01) ==
PROVIDERS: Emergency Provider Emergency Medicine; PCP Family Medicine; Visit Provider Emergency Medicine
DX: N20.1 Calculus of ureter (principal); N39.0 Urinary tract infection, site not specified
CPT/HCPCS: 74176; 80048; 81001; 85025; 96374; 96375; 99283; A4216; J2405

== ENCOUNTER 2023-09-16 06:59 | Emergency (ER) | payer SELFPAY ==
[2023-09-16 07:00] VITALS: BP 179/89; PULSE 87; RESP 16; TEMP 36.4; O2SAT 97; BMI 35.1
--- NOTE | 2023-09-16 07:35 | EDS_ITS ---
HPI History of Present Illness Chief Complaint: Flank Pain Narrative Narrative: 48-year-old female past medical history of hypertension, diabetes, hypercholesterolemia, previous kidney stones presents with left flank pain similar to her previous ureterolithiasis. She states her symptoms began this morning. She urinated and noticed it was a lot darker than usual. She thought maybe she had an infection. When she was in the shower, she developed left flank pain. It is a stabbing pain that radiates towards the front, and she has pressure in her left abdomen, lower. She denies any fevers or chills, no nausea or vomiting. No exacerbating or alleviating factors. She feels this is probably something similar to her previous stones, her last being last year. She does not follow-up with a urologist anymore. There was a time when she would get frequent kidney stones, but that resolved. [facility] Medical History Depression Diabetes Hypertension Hypothyroidism Home Medications Liraglutide [Victoza 2-Gonzalo] 1.8 mg SQ DAILY 10/28/15 [History Last Taken Unknown] amlodipine 5 mg tablet 10 mg PO DAILY 10/28/15 [History Last Taken 09/17/18 05:00 5 MG] glimepiride 1 mg tablet 4 mg PO DAILY 10/28/15 [History Last Taken Unknown] hydrochlorothiazide 12.5 mg capsule 12.5 mg PO DAILY 10/28/15 [History Last Taken Unknown] levothyroxine 50 mcg tablet 75 mcg PO DAILY 10/28/15 [History Last Taken 09/17/18 05:00 50 MCG] lisinopril 20 mg tablet 20 mg PO BID 10/28/15 [History Last Taken 01/02/16 07:30] lovastatin 20 mg tablet 20 mg PO DAILY 10/28/15 [History Last Taken 09/17/18 05:00 20 MG] metformin 1,000 mg tablet 1,000 mg PO BIDCM 10/28/15 [History Last Taken Unknown] sertraline 100 mg tablet 100 mg PO DAILY 10/28/15 [History Last Taken Unknown] ciprofloxacin HCl 500 mg tablet 500 mg PO BID #14 TABLETS 12/28/20 [Rx Last Taken Unknown] medroxyprogesterone 5 mg tablet (Provera) 5 mg PO DAILY 12/28/20 [History Last Taken Unknown] hydrocodone-acetaminophen 5-325mg 5mg-325mg 1 tab PO Q4H PRN PRN Pain 2 days #10 TABLETS 09/27/22 [Rx Last Taken Unknown] naproxen 500 mg tablet 500 mg PO BID #14 tabs 09/27/22 [Rx Last Taken Unknown] ondansetron 4 mg disintegrating tablet 4 mg PO Q8H PRN PRN Nausea #10 tabs 09/27/22 [Rx Last Taken Unknown] sulfamethoxazole 800 mg-trimethoprim 160 mg tablet 1 tab PO BID #6 TABLETS 09/27/22 [Rx Last Taken Unknown] hydrocodone-acetaminophen 5-325mg 5mg-325mg 1 tab PO Q6H PRN PRN Pain 3 days #12 TABLETS 09/16/23 [Rx Last Taken Unknown] ketorolac 10 mg tablet 10 mg PO TID PRN pain 5 days #15 tabs 09/16/23 [Rx Last Taken Unknown] sulfamethoxazole 800 mg-trimethoprim 160 mg tablet (Bactrim DS) 1 tab PO BID #14 tabs 09/16/23 [Rx Last Taken Unknown] tamsulosin 0.4 mg capsule (Flomax) 0.4 mg PO DAILY #10 caps 09/16/23 [Rx Last Taken Unknown] Allergy/AdvReac Type Severity Reaction Status Date / Time Penicillins Allergy Hives Verified 09/16/23 07:03 spironolactone Allergy Hives Verified 09/16/23 07:03 [From Aldactone] Surgical History History of cholecystectomy Status post trigger finger release Social History Smoking Status: Never smoker ROS ROS ED ROS Narrative Constitutional: No fever, no chills. HEENT: No sore throat. No neck pain. No loss of vision. No rhinorrhea. Cardiovascular: No chest pain. No palpitations. No pedal edema. Respiratory: No cough, no shortness of breath. Abdominal: No abdominal pain. No nausea. No vomiting. No problems with bowel movements. Genitourinary: No dysuria. No hematuria. However, dark urine today. Positive left flank pain with pressure in the front. Musculoskeletal: No myalgias. No arthralgias. Neurologic: No headaches. No dizziness. No lightheadedness. Skin: No rash. No change in color. Psychiatric: No depression. No anxiety. EXAM Physical Exam Narrative Exam Narrative: Afebrile. Vital signs noted. HEENT: Normocephalic. Atraumatic. PERRL, EOMI. Neck soft and supple. No point tenderness or step off. Cardiovascular: Regular rate and rhythm. No murmurs, rubs, or gallops appreciated. Respiratory: No tachypnea. Lungs clear to auscultation bilaterally. Gastrointestinal: Abdomen soft, nontender, with normoactive bowel sounds. No rebound or guarding. No CVA tenderness to percussion. Neurological: Awake. Alert. Nonfocal, nonlateralizing. Skin: No rash. Normal color. No pallor. Musculoskeletal: No pedal edema. Full range of motion extremities. Const Vital Signs: 09/16/23 07:00 09/16/23 10:22 Temperature 97.6 F L 98.9 F Temperature Source Temporal Pulse Rate 87 94 Respiratory Rate 16 16 Blood Pressure 179/89 H 140/86 H Blood Pressure Mean 119 104 Pulse Ox 97 94 Oxygen Delivery Method Room Air MDM MDM MDM Narrative Medical decision making narrative: In the differential diagnosis is ureterolithiasis versus pyelonephritis versus musculoskeletal back pain. Her history and physical is more indicative of ureterolithiasis given her history. Comprehensive workup was pursued. She will be started on IV fluids at 250 mL/h and administered morphine and ondansetron gi lukas her comorbidities. I do feel CT imaging is indicated. While she states she is perimenopausal, serum test will be obtained. I reviewed her laboratory work and her serum test is negative, review of her CBC shows normal white count of 10.8, hemoglobin of 14.1, platelet count normal at 317. Her electrolyte panel is grossly unremarkable with a normal creatinine of 0.62. Glucose is elevated at 199 consistent with her diabetes, but she has a normal anion gap of 5 so I have low concern for diabetic ketoacidosis. I reviewed the CT imaging and the radiology report of the CT flank which shows a 1 to 2 mm stone in the left mid ureter causing hydronephrosis. Review of her urinalysis shows 10-25 RBCs and 5-10 WBCs. This was sent for culture, but given her diabetes, although she does not have a white count or fever here, I will start her on Bactrim as she has an allergy to penicillins so I do not feel Keflex would be appropriate. Repeat examination after morphine and ondansetron shows her to feel relaxed . At this point in time, she was referred to the urologist on-call, Dr. James Molina and written prescriptions for Toradol which she has had previously, Flomax, [place], and for the Bactrim. I reviewed return instructions with the patient and her mother, but they both have had kidney stones and states they recognized signs to return to the emergency department. I do not feel she requires observation or admission at this point in time. Disposition is discharged home in stable condition. History & Record Review Discussion w/independent historian: Patient and Family Lab Data Attestation: I reviewed the patient's lab results. Labs: Laboratory Results - last 24 hr 09/16/23 09/16/23 07:20 07:50 WBC 10.8 RBC 5.02 Hgb 14.1 Hct 43.3 MCV 86.3 MCH 28.1 MCHC 32.6 RDW Std Deviation 42.6 RDW Coeff of Daniella 13.6 Plt Count 317 MPV 9.4 Immature Gran % (Auto) 0.600 Neut % (Auto) 71.0 H Lymph % (Auto) 19.4 [place] % (Auto) 6.9 Eos % (Auto) 1.5 Baso % (Auto) 0.6 Absolute Neuts (auto) 7.7 Absolute Lymphs (auto) 2.10 Nucleated RBC % 0 Sodium 137 Potassium 3.9 Chloride 105 Carbon Dioxide 27.0 Anion Gap 5 BUN 17 Creatinine 0.62 Estim Creat Clear Calc 129.73 Est GFR (MDRD) Af Amer 132 Est GFR (MDRD) Non-Af 109 BUN/Creatinine Ratio 27.2 H Glucose 199 H Calcium 9.5 Serum , Qual NEGATIVE Urine Color Rhonda Urine Clarity Clear Urine pH 6.0 Ur Specific [place] 1.020 Urine Protein 30 H Urine Glucose (UA) 50 H Urine Ketones Negative Urine Occult Blood 250 H Urine Nitrite Negative Urine Bilirubin Negative Urine Urobilinogen Normal Ur Leukocyte Esterase 25 H Urine RBC 10-25 SEEN Urine WBC 5-10 SEEN Ur Squamous Epith Cells 0-5 SEEN Urine Bacteria 2+ Urine Mucus 0 SEEN Radiography Diagnostic Testing: Clinical Impression(s) from Imaging Studies Abdomen/Pelvis CT 09/16/23 07:35 IMPRESSION: Mild left hydronephrosis secondary to a 1-2 mm mid ureteral calculus. Chronic findings as above. Electronically Signed: Yenny Qureshi MD at 9:19 EST , Discharge Plan Triage Chief Complaint: Flank Pain ED Provider: Albert Jules Dx/Rx/DC Orders Clinical Impression: Hydronephrosis, left, Left ureteral calculus Instructions: ED Kidney Stone with Pain Prescriptions: New tamsulosin [Flomax] 0.4 mg capsule 0.4 mg PO DAILY Qty: 10 0RF ketorolac 10 mg tablet 10 mg PO TID PRN (Reason: pain) 5 Days Qty: 15 0RF hydrocodone-acetaminophen 5-325 mg tablet 1 tab PO Q6H PRN PRN (Reason: Pain) 3 Days Qty: 12 0RF sulfamethoxazole-trimethoprim [Bactrim DS] 800-160 mg tablet 1 tab PO BID Qty: 14 0RF No Action lisinopril 20 MG tablet 20 mg PO BID amlodipine 5 MG tablet 10 mg PO DAILY glimepiride 1 MG tablet 4 mg PO DAILY metformin 1,000 MG tablet 1,000 mg PO BIDCM hydrochlorothiazide 12.5 MG capsule 12.5 mg PO DAILY sertraline 100 MG tablet 100 mg PO DAILY levothyroxine 50 MCG tablet 75 mcg PO DAILY lovastatin 20 MG tablet 20 mg PO DAILY Liraglutide [Victoza 2-Gonzalo] 0.6 MG/0.1 ML Ml 1.8 mg SQ DAILY medroxyprogesterone [Provera] 5 mg Tablet 5 mg PO DAILY ciprofloxacin HCl [ciprofloxacin HCl] 500 MG tablet 500 mg PO BID Qty: 14 0RF hydrocodone-acetaminophen [hydrocodone-acetaminophen] 5-325 mg tablet 1 tab PO Q4H PRN PRN (Reason: Pain) 2 Days Qty: 10 0RF sulfamethoxazole-trimethoprim [sulfamethoxazole-trimethoprim] 800-160 mg tablet 1 tab PO BID Qty: 6 0RF ondansetron [ondansetron] 4 mg tablet,disintegrating 4 mg PO Q8H PRN PRN (Reason: Nausea) Qty: 10 0RF naproxen 500 mg tablet 500 mg PO BID Qty: 14 0RF Primary Care Provider: Steven Puentes Referrals: Steven Puentes MD [Primary Care Provider] - Cody Molina MD [Med Staff - Active Staff] - 3-5 Days
--- NOTE | 2023-09-16 07:35 | CT_ITS ---
HISTORY: Left flank pain, history of kidney stones and prior cholecystectomy. TECHNIQUE: Helically acquired images were obtained of the abdomen and pelvis without oral or IV contrast. A radiation dose optimization technique was used for this scan. 539 images. COMPARISON: 09/27/2022. FINDINGS: LOWER CHEST: Small right minor fissural scar again seen. BOWEL: Bowel including appendix nondilated. No focal pericolonic inflammatory change. PERITONEUM: No significant free fluid. 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 LIVER: Enlarged with fatty infiltration. GALLBLADDER/BILIARY TREE: Gallbladder absent. SPLEEN/PANCREAS/ADRENAL GLANDS: Nonenlarged. KIDNEYS AND URETERS: Mild left perinephric stranding and hydroureteronephrosis down to the level of a 1-2 mm mid ureteral calculus. No right nephrolithiasis or hydronephrosis. VESSELS: No abdominal aortic aneurysm. PELVIC ORGANS: Unremarkable. ABDOMINAL WALL: Chronic subcutaneous lipomatous mass with internal rim calcified soft tissue components over the right upper quadrant. BONES: Degenerative change. L5 spondylolysis with grade [address]/Abdomen/Pelvis without Cont IMPRESSION: Mild left hydronephrosis secondary to a 1-2 mm mid ureteral calculus. Chronic findings as above. Electronically Signed: Yenny Qureshi MD at 9:19 EST ,
[2023-09-16 07:46] LABS: Mucous, Urine 0 SEEN /hpf (<or=2+)
[2023-09-16] MEDS: 0.9% Normal Saline (1000mL) 1,000 ML 250 ML IV (07:47)
[2023-09-16] MEDS: Ondansetron 4 MG/2 ML Vial IV (07:53)
[2023-09-16] MEDS: Morphine 4 MG/ML Syringe IV (07:54)
[2023-09-16 07:56] LABS: Color, Urine Amber (Yellow); Glucose, Dipstick 50 mg/dl (Normal); Ketone-Dipstick Negative (Negative); Leukocyte Esterase-Dipstick 25 /ul (Negative); Nitrite-Dipstick Negative (Negative); Occult Blood-Urine 250 /ul (Negative); Protein-Dipstick 30 mg/dl (Negative); Urine Bilirubin Dipstick Negative (Negative); Urine Clarity Clear (Clear); Urine Urobilinogen Normal (Normal)
[2023-09-16 08:00] LABS: Absolute Neutrophil Count 7.7 X10^3/uL (2.0-7.7); Basophil# 0.06 X10^3/uL; Basophil% 0.6 % (0-1); Eosinophil# 0.16 X10^3/uL; Eosinophils% 1.5 % (0-5); Hematocrit 43.3 % (37-47); Hemoglobin 14.1 g/dL (12.0-15.0); Lymphocyte % 19.4 % (19-41); Mean Corp Hgb Conc 32.6 g/dL (32-36); Mean Corpuscular Hgb 28.1 pg (27.0-32.0); Mean Corpuscular Volume 86.3 fL (81-99); Mean Platelet Vol. 9.4 fl (6.2-12.0); Monocyte# 0.74 X10^3/uL; Monocyte% 6.9 % (0-10); NRBC Flagged by Analyzer 0 % (0-5); Neutrophil # 7.68 X10^3/uL (2.7-7.7); Platelet Count 317 K/mm3 (150-450); RBC Distribution Width CV 13.6 % (11.6-14.6); RBC Distribution Width SD 42.6 fl (35.1-43.9); Red Blood Count 5.02 M/mm3 (4.2-5.4); White Blood Count 10.8 K/mm3 (4.4-11.0)
[2023-09-16 08:11] LABS: White Blood Cells 5-10 SEEN /hpf (0-5)
[2023-09-16 08:11] LABS: Internal QC Validated? YES +Cl - CLEAR BKGD; Pregnancy, Serum, hCG Quali. NEGATIVE Negative; Record Kit Lot#, Serum Preg. 718086
[2023-09-16 08:12] LABS: Bacteria 2+ /hpf (None Seen); Red Blood Cells-Urine 10-25 SEEN /hpf (0-5); Squamous Epithelial Cells - UA 0-5 SEEN /hpf (5-10)
[2023-09-16 08:15] LABS: Anion Gap 5 (5-15); BUN 17 mg/dL (7-18); BUN/Creat Ratio 27.2 RATIO (10-20); Calcium,Total 9.5 mg/dL (8.5-10.1); Chloride 105 mmol/L (98-107); Creatinine, Serum 0.62 mg/dL (0.55-1.02); EST Glomerular Filtration Rate 109 mL/min (>60); Est Glom Filt Rate - Afr Amer 132 mL/min (>60); Estimated Creatinine Clearance 129.73 ml/min; Glucose 199 mg/dL (74-106); Potassium 3.9 mmol/L (3.5-5.1); Sodium Level 137 mmol/L (136-145)
[2023-09-16 10:22] VITALS: BP 140/86; PULSE 94; RESP 16; TEMP 37.2; O2SAT 94
== END 2023-09-16 10:43 | disposition home or self-care (01) ==
LOC: ED 08:17
PROVIDERS: Emergency Provider Emergency Medicine; PCP Family Medicine; Visit Provider Emergency Medicine
DX: N13.2 Hydronephrosis with renal and ureteral calculous obstruction (principal); E11.9 Type 2 diabetes mellitus without complications
CPT/HCPCS: 74176; 80048; 81001; 84703; 85025; 87086; 87088; 96374; 96375; 99282; J7030; A4216; J2405